=== PATIENT | male | born 1950 | race Hispanic/Latino ===

== ENCOUNTER 2016-07-02 10:04 | Outpatient (CLI) | payer OTHER ==
--- NOTE | 2016-07-02 11:47 | Cat Scan Report ---
CT LUMBAR SPINE WITHOUT CONTRAST: HISTORY: Hodgkin's lymphoma, bone lesions at L2 and L3. TECHNIQUE: Helical CT without contrast. Sagittal and coronal reformatted images. COMPARISON: PET/CT dated 06/05/16. FINDINGS: There is normal height and alignment of the lumbar vertebral bodies. No evidence for fracture, subluxation or advanced degenerative changes. Minimal disc space narrowing and facet arthropathy are noted at all levels. No central canal stenosis or high-grade neural foraminal narrowing is appreciated. No large herniation. Subtle areas of bony sclerosis are identified within L1, L2 and L3. There is a very subtle area of sclerosis in the left anterior L1 vertebral body measuring 1.2 x 0.8 cm. This lesion was not clearly seen on the PET/CT which is probably secondary to the low voltage CT images obtained. There is a more pronounced area of sclerosis in the right anterior L2 vertebral body measuring 1.8 x 1.0 cm. There is a large area of sclerosis in the left anterior vertebral body of L3 measuring 4.0 x 2.4 cm. The ill-defined soft tissue density in the retroperitoneum is again suggested but only partially imaged on this exam. PET/CT suggested retroperitoneal lymph nodes. No additional information is available from this exam. IMPRESSION: Mild spondylosis. Subtle, sclerotic lesions are identified at L1, L2 and L3, as outlined above. These are consistent with neoplastic lesions.
== END 2016-07-02 10:05 | disposition home or self-care (01) ==
LOC: CT 10:04
PROVIDERS: ATTEND Family Medicine
DX: C81.90 Hodgkin lymphoma, unspecified, unspecified site (principal); M47.896 Other spondylosis, lumbar region; M12.88 Other specific arthropathies, not elsewhere classified, other specified site; M89.9 Disorder of bone, unspecified; Z85.9 Personal history of malignant neoplasm, unspecified
CPT/HCPCS: 72131